=== PATIENT | female | born 1965 | race Caucasian/White ===

== ENCOUNTER 2019-08-06 18:51 | Emergency (ER) | payer BC ==
[2019-08-06 19:03] VITALS: BP 111/70; PULSE 70
[2019-08-06] MEDS ORDERED: Sodium Chloride 0.9% 10 ML Syringe FLUSH PRN (19:42)
[2019-08-06] MEDS ORDERED: Glucagon,Human Recombinant 1 MG Vial IVPUSH ONE (19:42)
--- NOTE | 2019-08-06 19:50 | EDM.PDOC ---
ED HPI GENERAL MEDICAL PROBLEM - General Chief Complaint: Gastrointestinal Problem Stated Complaint: steak stuck in lap band Time Seen by Provider: 08/06/19 19:15 Source of Information: Reports: Patient, RN Notes Reviewed - History of Present Illness INITIAL COMMENTS - FREE TEXT/NARRATIVE: 54 yr old female with sensation of a piece of steak stuck in lower esophogus. She was eating steak yesterday mid afternoon when this happened. She does have a "lapband" placed about 10 yrs ago. She is able to drink tiny amounts of water only and than "needs to stand up for it to do down", otherwise she does end up vomiting. She states she always has to be careful to cut food up in small pieces and chew carefully but has never had anything like this get stuck before where it would not eventually go down. - Related Data Allergies Allergy/AdvReac Type Severity Reaction Status Date / Time No Known Allergies Allergy Verified 08/06/19 19:03 Home Meds: Home Meds . [No Known Home Meds] 08/30/14 [History] Past Medical History - Past Surgical History GI Surgical History: Reports: Other (See Below) Other GI Surgeries/Procedures: lap band Female Surgical History: Reports: Hysterectomy, Other (See Below) Other Female Surgeries/Procedures: breast implants. Social & Family History - Tobacco Use Smoking Status *Q: Never Smoker Second Hand Smoke Exposure: No - Caffeine Use Caffeine Use: Reports: Coffee - Recreational Drug Use Recreational Drug Use: No ED ROS GENERAL - Review of Systems Review Of Systems: See Below Constitutional: Denies: Fever, Chills HEENT: Reports: No Symptoms Respiratory: Denies: Shortness of Breath (pressure feeling lower mid chest, upper abd) GI/Abdominal: Reports: Abdominal Pain Musculoskeletal: Reports: No Symptoms. Denies: Back Pain Skin: Reports: No Symptoms Neurological: Reports: No Symptoms ED EXAM, GI/ABD - Physical Exam Exam: See Below Course - Vital Signs Last Recorded V/S: Last Vital Signs Temp 98.8 F 08/06/19 18:55 Pulse 70 08/06/19 18:55 Resp 18 08/06/19 18:55 BP 111/70 08/06/19 18:55 Pulse Ox 98 08/06/19 18:55 - Orders/Labs/Meds Orders: Active Orders 24 hr Category Date Time Status Peripheral IV Care [RC] . DIRECTED Care 08/06/19 19:42 Active Peripheral IV Insertion Adult [OM.PC] Stat Oth 08/06/19 19:41 Ordered Meds: Medications Discontinued Medications Generic Name Dose Route Start Last Admin Trade Name Madelyn PRN Reason Stop Dose Admin Glucagon 1 mg 08/06/19 19:42 08/06/19 19:55 Glucagen IVPUSH 08/06/19 19:43 1 mg ONETIME ONE Administration Lidocaine HCl Confirm 08/06/19 20:25 08/06/19 21:06 Xylocaine 1% Administered 08/06/19 20:26 Not Given Dose 10 ml .ROUTE .STK-MED ONE Lidocaine HCl 10 ml 08/06/19 21:06 08/06/19 21:06 Xylocaine 1% INJECT 08/06/19 21:07 10 ml ONETIME ONE Administration Sodium Chloride 10 ml 08/06/19 19:42 08/06/19 19:55 Saline Flush FLUSH 10 ml ASDIRECTED PRN Administration Keep Vein Open - Re-Assessments/Exams Free Text/Narrative Re-Assessment/Exam: 08/07/19 19:48 feeling much better, able to drink water without pain or vomiting at time of discharge. Departure - Departure Time of Disposition: 21:15 Disposition: Home, Self-Care 01 Condition: Fair Clinical Impression: Esophageal obstruction due to food impaction - Discharge Information Instructions: Swallowed Foreign Body, Adult, [id number] Referrals: PCP,None [Primary Care Provider] - Forms: ED Department Discharge Additional Instructions: Eat and drink carefully as tolerated. Follow up with Dr Chris as planned. Return to ED as needed. Sepsis Event Note - Evaluation Sepsis Screening Result: No Definite Risk - Focused Exam Date Exam was Performed: 08/07/19 Time Exam was Performed: 19:48 - My Orders Last 24 Hours: My Active Orders 08/06/19 19:41 Peripheral IV Insertion Adult [OM.PC] Stat 08/06/19 19:42 Peripheral IV Care [RC] . DIRECTED - Assessment/Plan Last 24 Hours: My Active Orders 08/06/19 19:41 Peripheral IV Insertion Adult [OM.PC] Stat 08/06/19 19:42 Peripheral IV Care [RC] . DIRECTED
[2019-08-06] MEDS ORDERED: Lidocaine 1% 10 ML MDV ONE (20:25)
--- NOTE | 2019-08-06 20:45 | PCM.CONS ---
H&P History of Present Illness - General Date of Service: 08/06/19 Source of Information: Patient, Provider History Limitations: Reports: No Limitations - History of Present Illness Initial Comments - Free Text/Narative: The patient is a 54 y/o lady who presents with a one day history of dysphagia. She reports eating steak yesterday and feels that it has gotten stuck in her stomach at the level of her lap band. She has only been able to tolerate small amounts of liquid since that time. She has nausea and dry heaves. She denies any pain. She denies any past episode that has been this severe. She is able to induce vomiting in the past if she feels something has stuck and this relieves the symptoms. - Related Data Allergies/Adverse Reactions: Allergies Allergy/AdvReac Type Severity Reaction Status Date / Time No Known Allergies Allergy Verified 08/06/19 19:03 Home Medications: Home Meds . [No Known Home Meds] 08/30/14 [History] Past Medical History - Past Surgical History GI Surgical History: Reports: Other (See Below) Other GI Surgeries/Procedures: lap band Female Surgical History: Reports: Hysterectomy, Other (See Below) Other Female Surgeries/Procedures: breast implants. Social & Family History - Family History Cardiac: Reports: [place] - Tobacco Use Smoking Status *Q: Never Smoker Second Hand Smoke Exposure: No - Caffeine Use Caffeine Use: Reports: Coffee - Recreational Drug Use Recreational Drug Use: No H&P Review of Systems - Review of Systems: Review Of Systems: See Below General: Reports: No Symptoms HEENT: Reports: No Symptoms Pulmonary: Reports: No Symptoms Cardiovascular: Reports: No Symptoms Gastrointestinal: Reports: Difficulty Swallowing, Nausea Genitourinary: Reports: No Symptoms Musculoskeletal: Reports: No Symptoms Skin: Reports: No Symptoms Psychiatric: Reports: No Symptoms Neurological: Reports: No Symptoms Hematologic/Lymphatic: Reports: No Symptoms Exam - Exam Exam: See Below - Vital Signs Vital Signs: Last Vital Signs Temp 37.1 C 08/06/19 18:55 Pulse 70 08/06/19 18:55 Resp 18 08/06/19 18:55 BP 111/70 08/06/19 18:55 Pulse Ox 98 08/06/19 18:55 Weight: 78.018 kg - Exam Quality Assessment: No: Supplemental Oxygen General: Alert, Oriented HEENT: Conjunctiva Clear, EOMI Neck: Supple Lungs: Normal Respiratory Effort GI/Abdominal Exam: Soft, Non-Tender Extremities: No Pedal Edema Peripheral Pulses: 2+: Dorsalis Pedis (L), Dorsalis Pedis (R) Skin: Warm, Dry, Intact Neurological: Cranial Nerves Intact Neuro Extensive - Mental Status: Normal Mood/Affect Sepsis Event Note - Evaluation Sepsis Screening Result: No Definite Risk - Focused Exam Vital Signs: Vital Signs Temp Pulse Resp BP Pulse Ox 08/06/19 18:55 37.1 C 70 18 111/70 98 Date Exam was Performed: 08/07/19 Time Exam was Performed: 00:09 Consult PN Assessment/Plan Procedures: Procedures EMERGENCY DEPT VISIT (08/30/14) (1) Dysphagia SNOMED Code(s): 22208243, 012262231 Code(s): R13.10 - DYSPHAGIA, UNSPECIFIED (2) Encounter for adjustment of gastric lap band SNOMED Code(s): 177953092, 711363089 Code(s): Z46.51 - ENCOUNTER FOR FITTING AND ADJUSTMENT OF GASTRIC LAP BAND Onset Date: 08/30/14 Problem List Initiated/Reviewed/Updated: Yes Plan: 54 y/o female with dysphagia, needs evaluation of lap band - plan for abdominal x-rays to evaluate position of band - plan to aspirate fluid from lap band port. Discussed risks of hematoma and infection. Informed consent was obtained. - Pt instructed to follow up with surgeon after discharge for removal of the band since pt expressed desire for excision - PO trial in ED after band deflated Alice Burks MD General surgery
[2019-08-06] MEDS ORDERED: Lidocaine 1% 10 ML MDV INJECT ONE (21:06)
--- NOTE | 2019-08-06 22:14 | CR ---
Abdomen: Supine and upright views of the abdomen were obtained. Comparison: No previous study. Lap band is noted. Bowel gas pattern is normal. No abnormal calcifications or soft tissue abnormality is seen. No radiopaque foreign object is seen. Bony structures are unremarkable. Impression: 1. Lap band. 2. Nothing acute is seen on 2 view abdominal x-ray. Diagnostic code #2 This report was dictated in MDT
--- NOTE | 2019-08-07 00:16 | PCM.PRNOTE ---
- Free Text/Narrative Note: Date: 08/06/2019 Pre-procedure diagnosis: Dysphagia Post-procedure diagnosis: Same Procedure: Port access and aspiration of gastric lap band fluid Surgeon: Alice Burks MD Anesthesia: 1% lidocaine Estimated blood loss: 0mL IVF: N/A Indication: The patient is a 54-year-old female who presented to the emergency department complaining of dysphasia after ingesting steak. She was not able to tolerate even drinking liquids. She does have a history of a LAP-BAND. She reports having similar episodes that were not as severe when she would get food stuck in the opening of this band. She underwent 2 view abdominal film which indicated good placement of the band. She was consented for aspiration and removal of the band fluid after discussion of the risks of bleeding, hematoma and infection. Her written consent was obtained Description of the procedure: The abdomen was cleansed with chlorhexidine solution over the area of the port. This was easily palpated. Local anesthetic was then injected into the skin with 1% lidocaine. We then used a 19 -gauge Forrest needle to access the port. As soon as the cap was removed from the tubing, the Forrest needle tubing immediately started draining fluid. Approximately 6 cc of fluid was removed from the band. The patient immediately felt relief. She was then able to drink water without difficulty. The needle was then removed and a sterile Band-Aid applied. The patient tolerated the procedure well without apparent complication. Alice Burks MD General Surgery
== END 2019-08-06 21:15 | disposition home or self-care (01) ==
LOC: JD.ED 18:51
DX: T18.128A Food in esophagus causing other injury, initial encounter (principal)
CPT/HCPCS: 74019; 96374; 99283; J1610; J2001